=== PATIENT | female | born 1990 | race Caucasian/White ===

== ENCOUNTER → 2020-09-28 14:37 | Outpatient (BNVA) | payer OTHER, SELFPAY | PROVIDERS: PCP Internal Medicine; Visit Provider Internal Medicine | DX: R07.2 Precordial pain (principal); Z87.898 Personal history of other specified conditions | CPT/HCPCS: 93005; 99202 ==

== ENCOUNTER → 2020-10-06 10:04 | Outpatient (REF) | payer OTHER, SELFPAY ==
--- NOTE | 2020-10-06 10:08 | CA_ITS ---
Acquisition Time: 2020-10-06 10:24:54 Total Exercise Time: 00:08:06 Test Indications: RO7.2, Z87.898 Medications: SEE CHART Protocol: KATIANA Max HR: 160 BPM 84% of Pred: 189 BPM Max BP: 156/068 mmHG Max Work Load: 10.1 METS Exercise stress test using Katiana protocol total of 8 min 6 sec. METS 10.10 and TAPHR up to 84%. Pt c/o 3/10 CP before exercise, that went down to 0/10 after exercise. EKG with multiple PVC's, bigeminy, asymptomatic. No ischemic changes seen during exercise or in recovery. Normotensive response to exercise. Test reviewed with Dr. Goodwin Referred By: Jose Goodwin Overread By: Izabela Ann NP
== END ==
LOC: HO.CARD 10:04
PROVIDERS: PCP Internal Medicine; Visit Provider Internal Medicine
DX: R07.2 Precordial pain (principal)
CPT/HCPCS: 93016; 93017; 93018

== ENCOUNTER → 2020-11-13 13:30 | Outpatient (REF) | payer OTHER, SELFPAY ==
--- NOTE | 2020-11-13 13:46 | CA_ITS ---
Transthoracic Echocardiogram Patient (Last, First, Middle): Annabel Hernandez, Gender: Female Date of : 1990 Age: 30 Procedure Date: 11/13/2020 Procedure Type: Transthoracic Echocardiogram Location: OP Height: 167.64 cm Weight: 80.74 kg BSA: 1.90 m2 Heart Rate: bpm BP: 117 / 75 mmHg Lacquer Machine Feeder: JENNIFER Referring MD: Jose Goodwin MD Symptoms: R07.2 - Precordial pain Study Quality: Good ECG Rhythm: Sinus Conclusions: - The left ventricular systolic function is normal. The visually estimated ejection fraction is between 55-60%. - No obvious valvular pathology seen on this study. Findings Left Ventricle Normal left ventricular cavity size. There is normal left ventricular wall thickness. The left ventricular systolic function is normal. The visually estimated ejection fraction is between 55-60%. There is no evidence of regional wall motion abnormalities. Diastolic function is normal for age. Right Ventricle Normal right ventricular cavity size and systolic function. Atria The left atrium is normal in size. The right atrium is normal in size. Aortic Valve There is a normal trileaflet aortic valve. There is no aortic valve stenosis. There is no aortic valve regurgitation. Mitral Valve There is mild anterior mitral leaflet thickening. There is trace mitral valve regurgitation. There is no mitral valve stenosis. Pulmonic Valve The pulmonic valve was not well visualized. Tricuspid Valve Normal tricuspid valve structure. There is trace tricuspid valve regurgitation. The pulmonary artery systolic pressure is normal. Great Vessels The aortic annulus, sinuses of valsalva, and asc aorta are normal in size. Venous The inferior vena cava is normal in size and collapses greater than 50% with inspiration. Pericardium/Pleural There is no evidence of pericardial effusion. Prior Study Comparison No prior study available for comparison. Recommendations, Care & Conclusions No obvious valvular pathology seen on this study. Measurements M-Mode Liner Measurements Normals - Women/Men IVSd: 1.08 0.6-0.9/0.6-1.0 cm 2D Linear Measurements IVSd: 1.01 0.6-0.9/0.6-1.0 cm LVIDd: 4.83 3.9-5.3/4.2-5.9 cm LVIDd Index: 2.54 2.4-3.2/2.2-3.1 cm/m2 LVIDs: 3.10 2.0-3.6 cm LVPWd: 0.91 0.7-1.1 cm Ao Root: 2.40 2.1-3.5 cm LA Diam: 3.60 2.7-3.8/3.0-4.0 cm LAIDs Index: 1.89 1.5-2.3 cm/m2 LV Mass: 202.66 67-162/88-224 g LV Mass Index: 106.66 43-95/49-115 g/m2 LVOT Diam: 2.00 3.0+(-)1.3 cm 2D Systolic Function EF 4C: 58.10 >55% EF 2C: 58.20 >55% EF BiP: 58.20 >55% Mitral Valve MV Pk E: 0.93 MV PK A: 0.51 MV Decel Time: 171.00 E/A: 1.80 E'Lateral: 18.30 E'Medial: 13.30 E/E' Med: 7.00 E/E' Lat: 5.10 PHT: 50.00 MVA PHT: 4.40 Decel Nance: 5.46 Aortic Valve AoV Pk Elias: 1.34 AoV Pk Grad: 7.00 LVOT LVOT Pk Elias: 0.98 LVOT Mn Elias: 0.66 LVOT VTI: 0.21 LVOT Pk Grad: 4.00 LVOT Mn Grad: 2.00 LVOT Diam: 2.00 LVOT Area: 3.14 Diastolic Function MV Pk E: 0.93 MV Pk A: 0.51 E/A: 1.80 E'Medial: 13.30 E/E' Med: 7.00 E' Laterial: 18.30 E/E' Lat: 5.10 Tricuspid Valve TR Pk Elias: 2.32 TR Pk Grad: 22.00 RA Press: 3.00 RVSP: 25.00 Great Vessels Aorta Ao Root-2D: 2.40 2.0-3.7 cm Ao Asc: 2.60 2.1-3.4 cm Ao Arch: 2.20 Updated in Other Vendor System with Status of Final Jose Goodwin MD electronically signed on 11/14/2020 12:05:08 PM with status of Final
--- NOTE | 2020-11-13 14:00 | ECG_ITS ---
Hook-up date: 2020-11-13 14:40:00 Duration: 24:29:00 Test Indications: PVC'S Medications: [id number] QRS complexes 8 Ventricular ectopics which represent <1 % of total QRS comp. 8 Supraventricular ectopics which represent <1 % of total QRS comp. * Paced QRS complexs which represent % of total QRS comp. VENTRICULAR ECTOPY 8 Isolated 0 Bigeminal Cycles 0 Couplets 0 Runs 0 Beats in Runs * Beats LONGEST at * BPM at :: -- * Beats FASTEST at * BPM at :: -- SUPRAVENTRICULAR ECTOPY 8 Isolated 0 Couplets 0 Runs 0 Beats in Runs * Beats LONGEST at * BPM at :: -- * Beats FASTEST at * BPM at :: -- HEART RATES 51 MIN at 06:37:06 2020-11-14 73 AVG 130 MAX at 11:57:09 2020-11-14 LONGEST RR 1.2080 secs at 08:32:33 2020-11-14 S-T LEVELS Channel 1 - 128 mm at 14:40:00 2020-11-13 - 128 mm at 14:40:00 2020-11-13 Channel 2 - 128 mm at 14:40:00 2020-11-13 - 128 mm at 14:40:00 2020-11-13 Channel 3 - 128 mm at 03:35:91 -- - 128 mm at 03:35:91 Underlying rhythm is sinus; Average rate 73/min; Very rare PACs and PVCs; Chest pain in patient diary associated with sinus rhythm in EKG. Referred By: Bushra Horner Overread By: BUSHRA HORNER
== END ==
LOC: HO.CARD 13:30
PROVIDERS: Visit Provider Internal Medicine
DX: R07.2 Precordial pain (principal); I49.3 Ventricular premature depolarization
CPT/HCPCS: 93225; 93226; 93306

== ENCOUNTER → 2020-11-16 12:10 | Outpatient (BNVA) | payer OTHER, SELFPAY | PROVIDERS: PCP Internal Medicine; Visit Provider Nurse Practitioner Family | DX: R07.2 Precordial pain (principal); I49.3 Ventricular premature depolarization; Z87.898 Personal history of other specified conditions | CPT/HCPCS: 99212 ==

== ENCOUNTER 2022-04-02 17:53 | Outpatient (REF) | payer OTHER, SELFPAY ==
--- NOTE | ~2022-04-02 | MR_ITS ---
EXAMINATION: MR BRAIN WITHOUT AND WITH CONTRAST CLINICAL INFORMATION: 32-year-old with self-reported involuntary movement and numbness. Evaluate for MS. COMPARISON: None TECHNIQUE: Multiplanar, multisequence MRI of the brain was obtained before and after the intravenous administration of 8.5 mL Gadavist. FINDINGS: Brain Volume: Within normal limits within the limitations of qualitative assessment. Structural: No malformations. Brain and Meninges: DWI sequence demonstrates no restricted diffusion to suggest acute or subacute cerebral ischemia. Gradient refocused imaging demonstrates no evidence for abnormal magnetic susceptibility artifact to suggest hemorrhage, hemosiderin staining or abnormal mineralization. The brain is normal in morphology and signal intensity. No extra-axial fluid collections, intracranial mass lesion, space-occupying process, or mass effect are identified and there is no pathologic intracranial enhancement. Ventricles and Subarachnoid Spaces: The ventricular system and subarachnoid spaces are within normal limits without hydrocephalus. Orbital Structures: The visualized orbital structures are grossly unremarkable within the limitations of the study. Vascular: There is absence of the normal right vertebral artery signal void at the level of the skull base and dens which may be secondary to hypoplasia. Otherwise, normal signal voids are seen in the visualized major intracranial vessels. Osseous Structures, Sinuses/Mastoids, Extracranial Soft Tissues: Small air-fluid level noted in the right maxillary sinus. Osseous marrow signal intensity appears within normal limits. The visualized extracranial soft tissue structures appear grossly unremarkable. MR/MR head/brain wo/w con IMPRESSION: 1. Normal MRI of the brain without and with contrast. Specifically, no evidence for demyelinating disease, infarction, hemorrhage, pathologic intracranial enhancement, mass lesion, space-occupying process, mass effect, or hydrocephalus. 2. 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 If clinically indicated, this can be further assessed with an MRA of the neck. 3. Small fluid level in the right maxillary sinus which is nonspecific.
== END 2022-04-02 17:54 | disposition home or self-care (01) ==
LOC: HO.MRI 17:53
PROVIDERS: Visit Provider Psychiatry & Neurology Neurology
DX: G37.9 Demyelinating disease of central nervous system, unspecified (principal)
CPT/HCPCS: 70553; A9585

== ENCOUNTER 2023-01-19 18:33 | Emergency (ER) | payer OTHER, SELFPAY ==
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
[2023-01-19 18:40] VITALS: BP 141/86; PULSE 83; RESP 16; TEMP 36.2; O2SAT 98; BMI 28.7
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
[2023-01-19] MEDS: Ibuprofen 800 MG TABLET PO (21:01)
--- NOTE | 2023-01-19 21:02 | PC.NURSE ---
pt medicated per MAR
== END 2023-01-19 21:23 | disposition home or self-care (01) ==
PROVIDERS: Emergency Provider Internal Medicine; PCP Internal Medicine
DX: S90.31XA Contusion of right foot, initial encounter (principal); X58.XXXA Exposure to other specified factors, initial encounter; Y93.9 Activity, unspecified; Y92.9 Unspecified place or not applicable; Y99.9 Unspecified external cause status
CPT/HCPCS: 73620; 99284